=== PATIENT | female | born 1935 | race African-American/Black ===

== ENCOUNTER 2018-04-19 11:07 | Inpatient (IN) | payer MEDICARE, MEDICAID ==
[~2018-04-19] VITALS: Ht 172.7 cm; Wt 75.7 kg
[~2018-04-19 11:07] MED LIST: ALPR0.5T PO; AMLO10TA80 PO; ASPI-1159 PO; DONE10TA11 PO; IBUP-2029 PO; MEMA10TA2 PO; PRAV40TA PO
[2018-04-19 13:17] LABS: MEAN CORPUSCULAR HEMOGLOBIN 22.3 pg (28.0-32.0); MEAN CORPUSCULAR VOLUME 73.3 fL (81.0-99.0); MEAN PLATELET VOLUME 8.6 fl (7.4-10.4); PLATELET 282 x1000/uL (130-400); RED BLOOD CELL COUNT 2.65 mill/uL (4.2-5.4); RED CELL DISTRIBUTION WIDTH 17.4 % (11.6-14.6)
[2018-04-19 13:19] LABS: CHLORIDE 105 mEq/L (98-107); PROTHROMBIN TIME 9.9 sec (9.1-11.1)
[2018-04-19 13:21] LABS: HEMATOCRIT. 19.4 % (36.0-48.0); HEMOGLOBIN. 5.9 g/dL (12.0-16.0)
[2018-04-19 13:26] LABS: CLARITY URINE CLEAR (CLEAR); COLOR URINE YELLOW (YELLOW); KETONES URINE NEGATIVE (NEGATIVE); LEUKOCYTE ESTERASE URINE TRACE (NEGATIVE); NITRITE URINE NEGATIVE (NEGATIVE); OCCULT BLOOD URINE NEGATIVE (NEGATIVE); PROTEIN URINE NEGATIVE (NEGATIVE)
[2018-04-19] MEDS ORDERED: LEVOFLOXACIN 750MG PREMIX 150 ML IV ONE (14:15)
[2018-04-19 14:38] LABS: PLATELET ESTIMATE NORMAL
[2018-04-19 17:15] VITALS: BP 152/52
[2018-04-19] MEDS ORDERED: MIRT15TA6 MT (19:02)
[2018-04-19] MEDS ORDERED: MECL-127 MT (19:02)
[2018-04-19] MEDS ORDERED: ALPR0.25 MT (19:02)
[2018-04-19] MEDS ORDERED: RIVA1PAT TD (19:02)
[2018-04-19] MEDS ORDERED: LOSA1TAB40 MT (19:02)
[2018-04-19] MEDS ORDERED: CYAN-33 PO (19:02)
[2018-04-19] MEDS ORDERED: DILT30TA3 MT (19:02)
[2018-04-19 20:00] VITALS: BP 149/51
[2018-04-19] MEDS ORDERED: FUROSEMIDE 20MG TABLET PO SCH (21:00)
[2018-04-19 21:42] VITALS: BP 135/52
[2018-04-19 21:57] VITALS: BP 141/47
[2018-04-19 22:57] VITALS: BP 155/42
[2018-04-19] MEDS ORDERED: AMLODIPINE 10MG TABLET PO NR (23:21)
[2018-04-19] MEDS: DONEPEZIL HCL 10MG TABLET PO SCH (23:48)
[2018-04-20] VITALS (11 sets, daily range): BP systolic 118–155; BP diastolic 29–72
[2018-04-20 07:29] LABS: BASOPHILS % 0.5 % (0.0-2.0); EOSINOPHILS % 0.7 % (0.0-5.0); HEMATOCRIT. 22.4 % (36.0-48.0); HEMOGLOBIN. 7.1 g/dL (12.0-16.0); LYMPHOCYTES % 21.3 % (20.0-50.0); MEAN CORPUSCULAR HEMOGLOBIN 24.3 pg (28.0-32.0); MEAN CORPUSCULAR VOLUME 76.4 fL (81.0-99.0); MEAN PLATELET VOLUME 8.5 fl (7.4-10.4); MONOCYTES % 9.1 % (2.0-8.0); NEUTROPHILS % 68.4 % (40.0-76.0); PLATELET 242 x1000/uL (130-400); RED BLOOD CELL COUNT 2.93 mill/uL (4.2-5.4); RED CELL DISTRIBUTION WIDTH 19.5 % (11.6-14.6)
[2018-04-20 07:40] LABS: FERRITIN 5 ng/mL (10-291)
[2018-04-20 07:48] LABS: TOTAL IRON BINDING CAPACITY 444 ug/dL (250-450)
[2018-04-20 08:41] LABS: VITAMIN B12 SERUM >2000 pg/mL pg/mL (211-911)
[2018-04-20 08:52] LABS: FOLIC ACID (FOLATE) SERUM > 20.00 ng/mL (>5.38)
[2018-04-20] MEDS: AMLODIPINE 10MG TABLET PO SCH ×2 (09:37→12:42)
[2018-04-20] MEDS: DONEPEZIL HCL 10MG TABLET PO SCH (09:37)
[2018-04-20] MEDS: MEMANTINE HCL 5MG TABLET PO SCH ×2 (09:37→12:42)
[2018-04-20] MEDS: MULTIVITAMINS,THER W-MINERALS TABLET PO SCH (09:37)
[2018-04-20] MEDS: LEVOFLOXACIN 250MG PREMIX 50 ML IV SCH (13:11)
[2018-04-21] VITALS: BP 156/56
[2018-04-21 04:00] VITALS: BP 145/50
[2018-04-21 07:00] LABS: BASOPHILS % 0.6 % (0.0-2.0); EOSINOPHILS % 0.1 % (0.0-5.0); HEMATOCRIT. 29.6 % (36.0-48.0); HEMOGLOBIN. 9.5 g/dL (12.0-16.0); LYMPHOCYTES % 15.9 % (20.0-50.0); MEAN CORPUSCULAR HEMOGLOBIN 25.2 pg (28.0-32.0); MEAN CORPUSCULAR VOLUME 78.4 fL (81.0-99.0); MEAN PLATELET VOLUME 8.6 fl (7.4-10.4); MONOCYTES % 8.7 % (2.0-8.0); NEUTROPHILS % 74.7 % (40.0-76.0); PLATELET 277 x1000/uL (130-400); RED BLOOD CELL COUNT 3.78 mill/uL (4.2-5.4); RED CELL DISTRIBUTION WIDTH 19.4 % (11.6-14.6)
[2018-04-21 08:00] VITALS: BP 138/68
[2018-04-21] MEDS: MEMANTINE HCL 5MG TABLET PO SCH (09:01)
[2018-04-21] MEDS: AMLODIPINE 10MG TABLET PO SCH (09:02)
[2018-04-21] MEDS: DONEPEZIL HCL 10MG TABLET PO SCH (09:02)
[2018-04-21] MEDS: MULTIVITAMINS,THER W-MINERALS TABLET PO SCH (09:02)
[2018-04-21 12:00] VITALS: BP 114/57
[2018-04-21] MEDS: LEVOFLOXACIN 250MG PREMIX 50 ML IV SCH (13:22)
[2018-04-21 15:31] VITALS: BP 114/58
== END 2018-04-21 18:46 | disposition home or self-care (01) | DRG 812 ==
LOC: ER 11:07 → 8WST 14:23 → EDBEDREQ 14:26 → EDBEDREQTM 14:26 → ENRESERV 15:31 → 8WST 22:05
PROVIDERS: ADMIT Internal Medicine; ATTEND Internal Medicine
PROC: 30233N1 Transfusion of Nonautologous Red Blood Cells into Peripheral Vein, Percutaneous Approach (ICD-10-PCS; principal; 2018-04-19)
DX: D50.9 Iron deficiency anemia, unspecified (principal); E11.9 Type 2 diabetes mellitus without complications; G30.9 Alzheimer's disease, unspecified; F02.80 Dementia in other diseases classified elsewhere, unspecified severity, without behavioral disturbance, psychotic disturbance, mood disturbance, and anxiety; E78.5 Hyperlipidemia, unspecified; Z53.29 Procedure and treatment not carried out because of patient's decision for other reasons; F41.9 Anxiety disorder, unspecified; I11.9 Hypertensive heart disease without heart failure; M19.90 Unspecified osteoarthritis, unspecified site; Z88.0 Allergy status to penicillin; Z88.5 Allergy status to narcotic agent; Z79.899 Other long term (current) drug therapy; Z79.82 Long term (current) use of aspirin
CPT/HCPCS: 36415; 71045; 80048; 82607; 82728; 82746; 83540; 83550; 86850; 86900; 86920; 93005; 93306; 96365; 99291; J1956; J7050; P9016

== ENCOUNTER 2018-05-20 20:31 | Inpatient (IN) | payer MEDICARE, MEDICAID ==
[~2018-05-20] VITALS: Ht 167.6 cm; Wt 64.0 kg
[~2018-05-20 20:31] MED LIST changes: +ALPR0.25 MT; -ALPR0.5T PO; -AMLO10TA80 PO; +CYAN-33 PO; +DILT30TA3 MT; +LOSA1TAB40 MT; +MECL-127 MT; -MEMA10TA2 PO; +MIRT15TA6 MT; +RIVA1PAT TD
[2018-05-21] MEDS ORDERED: ACETAMINOPHEN 325MG TABLET PO SCH (00:15)
[2018-05-21] MEDS ORDERED: MORPHINE SULFATE 4 MG/ML CPJ (NOT FOR IM USE) IV SCH (00:15)
[2018-05-21 00:24] LABS: HEMATOCRIT. 26.9 % (36.0-48.0); HEMOGLOBIN. 8.7 g/dL (12.0-16.0); MEAN CORPUSCULAR HEMOGLOBIN 25.3 pg (28.0-32.0); MEAN CORPUSCULAR VOLUME 78.4 fL (81.0-99.0); MEAN PLATELET VOLUME 8.6 fl (7.4-10.4); PLATELET 219 x1000/uL (130-400); RED BLOOD CELL COUNT 3.44 mill/uL (4.2-5.4); RED CELL DISTRIBUTION WIDTH 22.1 % (11.6-14.6)
[2018-05-21 00:31] LABS: PROTHROMBIN TIME 10.4 sec (9.1-11.1)
[2018-05-21 00:51] LABS: PLATELET ESTIMATE NORMAL
[2018-05-21 03:00] VITALS: BP 180/48
[2018-05-21] MEDS ORDERED: MULT1TAB67 MT (03:52)
[2018-05-21] MEDS ORDERED: FOLI-43 MT (03:56)
[2018-05-21] MEDS ORDERED: ACET325T52 MT (04:00)
[2018-05-21] MEDS ORDERED: FERR-71 MT (04:02)
[2018-05-21] MEDS ORDERED: CLONIDINE 0.1MG TABLET PO PRN (05:15)
[2018-05-21] MEDS ORDERED: MORPHINE SULFATE 4 MG/ML CPJ (NOT FOR IM USE) IV PRN ×2 (05:15→16:00)
[2018-05-21] MEDS ORDERED: POTASSIUM CHLORIDE 20MEQ TABLET SR PO SCH (05:15)
[2018-05-21 06:32] VITALS: BP 163/55
[2018-05-21 08:00] VITALS: BP 153/42
[2018-05-21] MEDS: AMLODIPINE 5MG TABLET PO SCH ×2 (08:27→21:03)
[2018-05-21 12:00] VITALS: BP 158/58
[2018-05-21] MEDS ORDERED: HYDROCODONE/ACETAMINOPHEN 5/325MG TABLET PO PRN (14:30)
[2018-05-21] MEDS ORDERED: BUPIVACAINE/EPINEPH/PF 0.25%/0.0005 10ML ONE ×2 (14:37→15:02)
[2018-05-21] MEDS ORDERED: VANCOMYCIN HCL 500 MG/VIAL ONE (14:38)
[2018-05-21] MEDS ORDERED: BUPIVACAINE HCL/DEXTROSE/PF 0.75% 2ML AMP INJ ONE (14:53)
[2018-05-21] MEDS ORDERED: MORPHINE SULFATE/PF 1MG/ML 10ML AMP ONE (15:03)
[2018-05-21] MEDS ORDERED: ONDANSETRON HCL 4MG/2ML INJ IV PRN ×2 (16:00)
[2018-05-21] MEDS ORDERED: HYDROCODONE/ACETAMINOPHEN 10/325MG TABLET PO PRN (16:00)
[2018-05-21] MEDS ORDERED: MEPERIDINE HCL/PF 25MG/ML CPJ IV PRN ×2 (16:00)
[2018-05-21 16:11] LABS: CLARITY URINE CLEAR (CLEAR); COLOR URINE YELLOW (YELLOW); KETONES URINE NEGATIVE (NEGATIVE); LEUKOCYTE ESTERASE URINE 1+ (NEGATIVE); NITRITE URINE NEGATIVE (NEGATIVE); OCCULT BLOOD URINE NEGATIVE (NEGATIVE); PROTEIN URINE NEGATIVE (NEGATIVE); SPECIFIC GRAVITY URINE 1.022 (1.005-1.030); UROBILINOGEN URINE 0.2 E.U./dL (0.2-1.0)
[2018-05-21] MEDS: HYDROMORPHONE HCL/PF 2MG/ML CPJ IV PRN ×2 (16:28→16:38)
[2018-05-21] MEDS ORDERED: LABETALOL HCL 20MG/4ML CARPUJECT IV NR (16:30)
[2018-05-21] MEDS: CLINDAMYCIN 600 MG in DEXTROSE 5% WATER 50 ML IV SCH (17:00)
[2018-05-21] MEDS: DOCUSATE SODIUM 100MG CAPSULE PO SCH (17:00)
[2018-05-21] MEDS: SENNOSIDES/DOCUSATE SOD 8.6/50MG TABLET PO SCH (17:00)
[2018-05-21 20:00] VITALS: BP 139/77
[2018-05-21] MEDS: ATORVASTATIN CALCIUM 40MG TABLET PO SCH (21:03)
[2018-05-22] VITALS (11 sets, daily range): BP systolic 105–154; BP diastolic 36–89
[2018-05-22] MEDS: SODIUM CHLORIDE 0.9% 1,000 ML IV ONE ×2 (00:22→04:03)
[2018-05-22] MEDS: CLINDAMYCIN 600 MG in DEXTROSE 5% WATER 50 ML IV SCH ×4 (00:23→18:18)
[2018-05-22 06:52] LABS: BASOPHILS % 0.4 % (0.0-2.0); HEMATOCRIT. 21.9 % (36.0-48.0); LYMPHOCYTES % 9.1 % (20.0-50.0); MEAN CORPUSCULAR VOLUME 80.7 fL (81.0-99.0); MEAN PLATELET VOLUME 9.3 fl (7.4-10.4); MONOCYTES % 9.6 % (2.0-8.0); NEUTROPHILS % 80.9 % (40.0-76.0); PLATELET 169 x1000/uL (130-400); RED BLOOD CELL COUNT 2.71 mill/uL (4.2-5.4); RED CELL DISTRIBUTION WIDTH 22.5 % (11.6-14.6)
[2018-05-22 07:43] LABS: HEMOGLOBIN. 6.8 g/dL (12.0-16.0)
[2018-05-22] MEDS: AMLODIPINE 5MG TABLET PO SCH ×2 (09:11→21:36)
[2018-05-22] MEDS: DOCUSATE SODIUM 100MG CAPSULE PO SCH ×2 (09:11→18:18)
[2018-05-22] MEDS: SENNOSIDES/DOCUSATE SOD 8.6/50MG TABLET PO SCH ×2 (09:11→18:18)
[2018-05-22] MEDS ORDERED: ACETAMINOPHEN 325MG TABLET PO PRN (13:25)
[2018-05-22] MEDS ORDERED: LEVOFLOXACIN 500MG TABLET PO SCH (17:30)
[2018-05-22 19:28] LABS: HEMATOCRIT 24.1 % (36.0-48.0); HEMOGLOBIN 7.8 g/dL (12.0-16.0); PROTHROMBIN TIME 10.1 sec (9.1-11.1)
[2018-05-22 19:47] LABS: T4 FREE 1.75 ng/dL (0.76-1.46)
[2018-05-22 20:09] LABS: VITAMIN B12 SERUM 1844 pg/mL (211-911)
[2018-05-22 20:28] LABS: FOLIC ACID (FOLATE) SERUM > 20.00 ng/mL (>5.38)
[2018-05-22] MEDS ORDERED: LORAZEPAM 2MG/ML CPJ IM PRN (21:00)
[2018-05-22] MEDS: ATORVASTATIN CALCIUM 40MG TABLET PO SCH (21:36)
[2018-05-23 04:00] VITALS: BP_SYST 125; BP_SYST 142; BP_DIAS 35; BP_DIAS 43
[2018-05-23 08:00] VITALS: BP 135/65
[2018-05-23] MEDS ORDERED: DONEPEZIL HCL 10MG TABLET PO SCH (09:00)
[2018-05-23] MEDS: DOCUSATE SODIUM 100MG CAPSULE PO SCH ×2 (09:06→17:46)
[2018-05-23] MEDS: SENNOSIDES/DOCUSATE SOD 8.6/50MG TABLET PO SCH ×2 (09:07→17:46)
[2018-05-23] MEDS: AMLODIPINE 5MG TABLET PO SCH ×2 (09:07→20:32)
[2018-05-23 12:00] VITALS: BP 138/51
[2018-05-23 14:18] LABS: BASOPHILS % 0.3 % (0.0-2.0); EOSINOPHILS % 0.1 % (0.0-5.0); HEMATOCRIT. 24.3 % (36.0-48.0); HEMOGLOBIN. 7.9 g/dL (12.0-16.0); LYMPHOCYTES % 11.8 % (20.0-50.0); MEAN CORPUSCULAR HEMOGLOBIN 26.1 pg (28.0-32.0); MEAN CORPUSCULAR VOLUME 80.7 fL (81.0-99.0); MEAN PLATELET VOLUME 9.5 fl (7.4-10.4); MONOCYTES % 9.9 % (2.0-8.0); NEUTROPHILS % 77.9 % (40.0-76.0); PLATELET 156 x1000/uL (130-400); RED BLOOD CELL COUNT 3.01 mill/uL (4.2-5.4); RED CELL DISTRIBUTION WIDTH 21.1 % (11.6-14.6)
[2018-05-23 16:00] VITALS: BP 138/51
[2018-05-23] MEDS: ATORVASTATIN CALCIUM 40MG TABLET PO SCH (20:31)
[2018-05-23] MEDS ORDERED: ALPRAZOLAM MT PRN (21:00)
[2018-05-23] MEDS ORDERED: IBUPROFEN 600 MG PO PRN (21:00)
[2018-05-23] MEDS ORDERED: MIRTAZAPINE 15MG TABLET PO SCH (21:00)
[2018-05-24] MEDS ORDERED: FERROUS SULFATE 325MG TABLET PO SCH (09:00)
[2018-05-24] MEDS ORDERED: ACETAMINOPHEN MT SCH (09:00)
[2018-05-24] MEDS ORDERED: PRAVASTATIN SODIUM 40 MG PO SCH (09:00)
[2018-05-24] MEDS ORDERED: DILTIAZEM HCL 30MG TABLET PO SCH (09:00)
[2018-05-24] MEDS ORDERED: DONEPEZIL HCL 10MG TABLET PO SCH (09:00)
[2018-05-24] MEDS ORDERED: MEDICATION NOT ON FORMULARY EA (Folic Acid 1 TAB) MT SCH (09:00)
[2018-05-24] MEDS ORDERED: MULTIVITAMIN MT SCH (09:00)
[2018-05-24] MEDS ORDERED: MECLIZINE HCL MT SCH (09:00)
== END 2018-05-23 21:41 | DRG 480 ==
LOC: ER 20:31 → 6EST 05-21 00:16 → EDBEDREQ 05-21 00:19 → EDBEDREQDT 05-21 00:19 → EDBEDREQTM 05-21 00:19 → ENRESERV 05-21 01:17
PROVIDERS: ADMIT Internal Medicine; ATTEND Internal Medicine
PROC: 0QS704Z Reposition Left Upper Femur with Internal Fixation Device, Open Approach (ICD-10-PCS; principal; 2018-05-21)
PROC: 30233N1 Transfusion of Nonautologous Red Blood Cells into Peripheral Vein, Percutaneous Approach (ICD-10-PCS; 2018-05-22)
DX: S72.142A Displaced intertrochanteric fracture of left femur, initial encounter for closed fracture (principal); N17.0 Acute kidney failure with tubular necrosis; G92 Toxic encephalopathy; N39.0 Urinary tract infection, site not specified; I10 Essential (primary) hypertension; E78.00 Pure hypercholesterolemia, unspecified; E78.5 Hyperlipidemia, unspecified; D64.9 Anemia, unspecified; F03.90 Unspecified dementia, unspecified severity, without behavioral disturbance, psychotic disturbance, mood disturbance, and anxiety; E87.6 Hypokalemia; I27.20 Pulmonary hypertension, unspecified; I07.1 Rheumatic tricuspid insufficiency; R73.9 Hyperglycemia, unspecified; Z96.641 Presence of right artificial hip joint; W10.8XXA Fall (on) (from) other stairs and steps, initial encounter; Y92.009 Unspecified place in unspecified non-institutional (private) residence as the place of occurrence of the external cause; Y93.89 Activity, other specified; Y99.8 Other external cause status; Z88.0 Allergy status to penicillin; Z88.5 Allergy status to narcotic agent; Z87.891 Personal history of nicotine dependence
CPT/HCPCS: 36415; 70551; 71045; 73502; 73503; 76000; 80048; 82140; 82607; 82746; 83036; 84439; 84443; 84481; 85014; 85018; 85049; 85384; 86850; 86900; 86920; 93005; 93306; 96374; 97162; 97166; 97530; 99285; C1713; C1769; C1893; J0171; J0330; J0690; J1170; J2060; J2175; J2250; J2270; J2274; J2370; J2405; J2704; J2710; J2765; J3010; J3370; J3490; J7040; J7060; P9016

== ENCOUNTER 2018-05-23 21:37 | Inpatient (IN) | payer MEDICARE, MEDICAID ==
[~2018-05-23] VITALS: Ht 167.6 cm; Wt 69.9 kg
[2018-05-23 21:37] VITALS: BP 139/41
[~2018-05-23 21:37] MED LIST changes: +ACET325T52 MT; +FERR-71 MT; +FOLI-43 MT; +MULT1TAB67 MT
[2018-05-23 22:00] VITALS: BP 139/41
[2018-05-24] VITALS (7 sets, daily range): BP systolic 124–137; BP diastolic 28–46
[2018-05-24] MEDS ORDERED: HYDROCODONE/ACETAMINOPHEN 10/325MG TABLET PO PRN
[2018-05-24] MEDS ORDERED: LORAZEPAM 1MG TABLET PO PRN
[2018-05-24] MEDS ORDERED: ONDANSETRON HCL 4MG TABLET PO PRN
[2018-05-24] MEDS ORDERED: CLONIDINE 0.1MG TABLET PO PRN
[2018-05-24 07:34] LABS: CHLORIDE 111 mEq/L (98-107)
[2018-05-24 07:50] LABS: BASOPHILS % 0.3 % (0.0-2.0); EOSINOPHILS % 0.8 % (0.0-5.0); HEMATOCRIT. 21.7 % (36.0-48.0); HEMOGLOBIN. 7.2 g/dL (12.0-16.0); LYMPHOCYTES % 13.2 % (20.0-50.0); MEAN CORPUSCULAR HEMOGLOBIN 26.5 pg (28.0-32.0); MEAN CORPUSCULAR VOLUME 80.2 fL (81.0-99.0); MEAN PLATELET VOLUME 9.6 fl (7.4-10.4); MONOCYTES % 7.6 % (2.0-8.0); NEUTROPHILS % 78.1 % (40.0-76.0); PLATELET 139 x1000/uL (130-400); RED BLOOD CELL COUNT 2.71 mill/uL (4.2-5.4); RED CELL DISTRIBUTION WIDTH 20.8 % (11.6-14.6)
[2018-05-24] MEDS: DONEPEZIL HCL 10MG TABLET PO SCH (10:27)
[2018-05-24] MEDS: DOCUSATE SODIUM 100MG CAPSULE PO SCH ×2 (10:27→17:48)
[2018-05-24] MEDS: SENNOSIDES/DOCUSATE SOD 8.6/50MG TABLET PO SCH ×2 (10:27→17:00)
[2018-05-24] MEDS: AMLODIPINE 5MG TABLET PO SCH ×2 (10:27→23:49)
[2018-05-24] MEDS: LEVOFLOXACIN 500MG TABLET PO SCH (10:34)
[2018-05-24] MEDS: HYDROCODONE/ACETAMINOPHEN 5/325MG TABLET PO PRN ×2 (14:14→18:57)
[2018-05-24] MEDS: ATORVASTATIN CALCIUM 40MG TABLET PO SCH (23:48)
[2018-05-25] MEDS: HYDROCODONE/ACETAMINOPHEN 5/325MG TABLET PO PRN ×3 (04:50→17:46)
[2018-05-25] MEDS: IRON SUCROSE COMPLEX 100 MG in SODIUM CHLORIDE 0.9% 100 ML IV SCH (06:06)
[2018-05-25 06:47] LABS: BASOPHILS % 0.5 % (0.0-2.0); EOSINOPHILS % 3.2 % (0.0-5.0); HEMATOCRIT. 26.2 % (36.0-48.0); HEMOGLOBIN. 8.7 g/dL (12.0-16.0); LYMPHOCYTES % 16.5 % (20.0-50.0); MEAN CORPUSCULAR HEMOGLOBIN 26.8 pg (28.0-32.0); MEAN CORPUSCULAR VOLUME 80.5 fL (81.0-99.0); MEAN PLATELET VOLUME 9.4 fl (7.4-10.4); MONOCYTES % 9.4 % (2.0-8.0); NEUTROPHILS % 70.4 % (40.0-76.0); PLATELET 169 x1000/uL (130-400); RED BLOOD CELL COUNT 3.26 mill/uL (4.2-5.4); RED CELL DISTRIBUTION WIDTH 18.9 % (11.6-14.6)
[2018-05-25 06:55] LABS: CHLORIDE 109 mEq/L (98-107)
[2018-05-25 07:09] LABS: FERRITIN 96 ng/mL (10-291)
[2018-05-25 07:11] LABS: PHOSPHORUS 2.6 mg/dL (2.5-4.9)
[2018-05-25 07:12] LABS: TOTAL IRON BINDING CAPACITY 248 ug/dL (250-450)
[2018-05-25 07:13] LABS: HAPTOGLOBIN 281 mg/dL (30-200)
[2018-05-25 07:22] LABS: VITAMIN B12 SERUM 1414 pg/mL (211-911)
[2018-05-25 08:00] VITALS: BP 119/48
[2018-05-25] MEDS: SENNOSIDES/DOCUSATE SOD 8.6/50MG TABLET PO SCH (09:00)
[2018-05-25] MEDS: DONEPEZIL HCL 10MG TABLET PO SCH (09:50)
[2018-05-25] MEDS: AMLODIPINE 5MG TABLET PO SCH ×2 (09:50→21:44)
[2018-05-25] MEDS: DOCUSATE SODIUM 100MG CAPSULE PO SCH ×2 (09:50→17:45)
[2018-05-25] MEDS ORDERED: LACTULOSE 20G/30ML UDC PO STA (13:04)
[2018-05-25] MEDS ORDERED: DOCUSATE SODIUM 100MG CAPSULE PO SCH (17:00)
[2018-05-25 20:00] VITALS: BP 146/53
[2018-05-25] MEDS: POLYETHYLENE GLYCOL 3350 (17GM) 1 DOSE PACK PO SCH (21:00)
[2018-05-25] MEDS: ATORVASTATIN CALCIUM 40MG TABLET PO SCH (21:44)
[2018-05-26] MEDS: IRON SUCROSE COMPLEX 100 MG in SODIUM CHLORIDE 0.9% 100 ML IV SCH (05:04)
[2018-05-26 06:51] LABS: HEMOGLOBIN 8.3 g/dL (12.0-16.0); MEAN CORPUSCULAR HEMOGLOBIN 26.6 pg (28.0-32.0); MEAN CORPUSCULAR VOLUME 80.1 fL (81.0-99.0); PLATELET 176 x1000/uL (130-400); RED BLOOD CELL COUNT 3.12 mill/uL (4.2-5.4); RED CELL DISTRIBUTION WIDTH 19.3 % (11.6-14.6)
[2018-05-26 08:49] VITALS: BP 116/47
[2018-05-26 09:06] LABS: IMMUNOGLOBULIN A 211 mg/dL (64-422); IMMUNOGLOBULIN G 887 mg/dL (700-1600); IMMUNOGLOBULIN M 22 mg/dL (26-217)
[2018-05-26] MEDS: DONEPEZIL HCL 10MG TABLET PO SCH (09:55)
[2018-05-26] MEDS: DOCUSATE SODIUM 100MG CAPSULE PO SCH ×2 (09:55→18:30)
[2018-05-26] MEDS: AMLODIPINE 5MG TABLET PO SCH ×2 (09:55→20:34)
[2018-05-26] MEDS: LEVOFLOXACIN 500MG TABLET PO SCH (11:48)
[2018-05-26 20:00] VITALS: BP 131/44
[2018-05-26] MEDS: ATORVASTATIN CALCIUM 40MG TABLET PO SCH (20:34)
[2018-05-26] MEDS: POLYETHYLENE GLYCOL 3350 (17GM) 1 DOSE PACK PO SCH (20:35)
[2018-05-27] MEDS: ACETAMINOPHEN 325MG TABLET PO PRN (02:39)
[2018-05-27] MEDS: IRON SUCROSE COMPLEX 100 MG in SODIUM CHLORIDE 0.9% 100 ML IV SCH (05:35)
[2018-05-27 07:22] LABS: BASOPHILS % 0.6 % (0.0-2.0); EOSINOPHILS % 2.6 % (0.0-5.0); HEMATOCRIT. 25.7 % (36.0-48.0); HEMOGLOBIN. 8.5 g/dL (12.0-16.0); LYMPHOCYTES % 20.6 % (20.0-50.0); MEAN CORPUSCULAR HEMOGLOBIN 26.5 pg (28.0-32.0); MEAN CORPUSCULAR VOLUME 80.4 fL (81.0-99.0); MEAN PLATELET VOLUME 8.6 fl (7.4-10.4); MONOCYTES % 12.3 % (2.0-8.0); NEUTROPHILS % 63.9 % (40.0-76.0); PLATELET 198 x1000/uL (130-400); RED CELL DISTRIBUTION WIDTH 19.2 % (11.6-14.6)
[2018-05-27 07:30] VITALS: BP 133/45
[2018-05-27] MEDS: DOCUSATE SODIUM 100MG CAPSULE PO SCH ×2 (09:02→17:19)
[2018-05-27] MEDS: AMLODIPINE 5MG TABLET PO SCH ×2 (09:02→21:07)
[2018-05-27] MEDS: DONEPEZIL HCL 10MG TABLET PO SCH (09:02)
[2018-05-27] MEDS: HYDROCODONE/ACETAMINOPHEN 5/325MG TABLET PO PRN ×3 (11:42→21:07)
[2018-05-27 18:48] LABS: CLARITY URINE CLOUDY (CLEAR); COLOR URINE YELLOW (YELLOW); KETONES URINE NEGATIVE (NEGATIVE); LEUKOCYTE ESTERASE URINE 3+ (NEGATIVE); NITRITE URINE NEGATIVE (NEGATIVE); OCCULT BLOOD URINE TRACE (NEGATIVE); PH URINE 5.5 (4.5-8.0); PROTEIN URINE TRACE (NEGATIVE); SPECIFIC GRAVITY URINE 1.019 (1.005-1.030)
[2018-05-27 20:00] VITALS: BP 133/75
[2018-05-27] MEDS: POLYETHYLENE GLYCOL 3350 (17GM) 1 DOSE PACK PO SCH (20:54)
[2018-05-27] MEDS: ATORVASTATIN CALCIUM 40MG TABLET PO SCH (21:07)
[2018-05-28 07:51] LABS: BASOPHILS % 0.4 % (0.0-2.0); EOSINOPHILS % 3.5 % (0.0-5.0); HEMATOCRIT. 26.6 % (36.0-48.0); HEMOGLOBIN. 8.7 g/dL (12.0-16.0); LYMPHOCYTES % 14.5 % (20.0-50.0); MEAN CORPUSCULAR HEMOGLOBIN 26.6 pg (28.0-32.0); MEAN CORPUSCULAR VOLUME 81.4 fL (81.0-99.0); MEAN PLATELET VOLUME 8.8 fl (7.4-10.4); MONOCYTES % 10.9 % (2.0-8.0); NEUTROPHILS % 70.7 % (40.0-76.0); PLATELET 213 x1000/uL (130-400); RED BLOOD CELL COUNT 3.27 mill/uL (4.2-5.4); RED CELL DISTRIBUTION WIDTH 19.5 % (11.6-14.6)
[2018-05-28 08:00] VITALS: BP 91/42
[2018-05-28] MEDS: AMLODIPINE 5MG TABLET PO SCH ×2 (09:00→21:08)
[2018-05-28] MEDS: DONEPEZIL HCL 10MG TABLET PO SCH (09:12)
[2018-05-28] MEDS: HYDROCODONE/ACETAMINOPHEN 5/325MG TABLET PO PRN (09:12)
[2018-05-28] MEDS: DOCUSATE SODIUM 100MG CAPSULE PO SCH ×2 (09:12→17:00)
[2018-05-28] MEDS: LEVOFLOXACIN 500MG TABLET PO SCH (11:34)
[2018-05-28 20:00] VITALS: BP 148/42
[2018-05-28] MEDS: POLYETHYLENE GLYCOL 3350 (17GM) 1 DOSE PACK PO SCH (21:00)
[2018-05-28] MEDS: ATORVASTATIN CALCIUM 40MG TABLET PO SCH (21:09)
[2018-05-29] MEDS: ACETAMINOPHEN 325MG TABLET PO PRN (06:58)
[2018-05-29 08:00] VITALS: BP 156/44
[2018-05-29] MEDS: DOCUSATE SODIUM 100MG CAPSULE PO SCH ×2 (09:39→17:28)
[2018-05-29] MEDS: DONEPEZIL HCL 10MG TABLET PO SCH (09:40)
[2018-05-29] MEDS: AMLODIPINE 5MG TABLET PO SCH ×2 (09:40→21:03)
[2018-05-29] MEDS: HYDROCODONE/ACETAMINOPHEN 5/325MG TABLET PO PRN (15:27)
[2018-05-29] MEDS ORDERED: LORAZEPAM 1MG TABLET PO PRN (19:45)
[2018-05-29 20:00] VITALS: BP 143/41
[2018-05-29] MEDS: ATORVASTATIN CALCIUM 40MG TABLET PO SCH (21:02)
[2018-05-29] MEDS: POLYETHYLENE GLYCOL 3350 (17GM) 1 DOSE PACK PO SCH (21:03)
[2018-05-30 06:30] LABS: BASOPHILS % 0.6 % (0.0-2.0); EOSINOPHILS % 1.7 % (0.0-5.0); HEMATOCRIT. 28.2 % (36.0-48.0); LYMPHOCYTES % 14.1 % (20.0-50.0); MEAN CORPUSCULAR HEMOGLOBIN 26.3 pg (28.0-32.0); MEAN CORPUSCULAR VOLUME 82.4 fL (81.0-99.0); MEAN PLATELET VOLUME 8.7 fl (7.4-10.4); MONOCYTES % 11.1 % (2.0-8.0); NEUTROPHILS % 72.5 % (40.0-76.0); PLATELET 269 x1000/uL (130-400); RED BLOOD CELL COUNT 3.42 mill/uL (4.2-5.4); RED CELL DISTRIBUTION WIDTH 19.7 % (11.6-14.6)
[2018-05-30] MEDS: HYDROCODONE/ACETAMINOPHEN 5/325MG TABLET PO PRN (06:36)
[2018-05-30 07:24] LABS: CHLORIDE 107 mEq/L (98-107)
[2018-05-30 07:29] LABS: CLARITY URINE CLOUDY (CLEAR); COLOR URINE YELLOW (YELLOW); KETONES URINE NEGATIVE (NEGATIVE); LEUKOCYTE ESTERASE URINE 3+ (NEGATIVE); NITRITE URINE NEGATIVE (NEGATIVE); OCCULT BLOOD URINE NEGATIVE (NEGATIVE); PROTEIN URINE NEGATIVE (NEGATIVE); SPECIFIC GRAVITY URINE 1.013 (1.005-1.030)
[2018-05-30 07:32] LABS: PHOSPHORUS 3.3 mg/dL (2.5-4.9)
[2018-05-30 08:00] VITALS: BP 149/41
[2018-05-30] MEDS: DONEPEZIL HCL 10MG TABLET PO SCH (08:50)
[2018-05-30] MEDS: DOCUSATE SODIUM 100MG CAPSULE PO SCH ×2 (08:50→17:00)
[2018-05-30] MEDS: AMLODIPINE 5MG TABLET PO SCH ×2 (08:51→20:23)
[2018-05-30 15:09] LABS: 25-HYDROXY VITAMIN D3 18 ng/mL (.)
[2018-05-30 20:00] VITALS: BP 135/33
[2018-05-30] MEDS: ERGOCALCIFEROL 50000UNITS CAPSULE PO SCH (20:22)
[2018-05-30] MEDS: ATORVASTATIN CALCIUM 40MG TABLET PO SCH (20:23)
[2018-05-30] MEDS: POLYETHYLENE GLYCOL 3350 (17GM) 1 DOSE PACK PO SCH (20:23)
[2018-05-31] MEDS: HYDROCODONE/ACETAMINOPHEN 5/325MG TABLET PO PRN (06:32)
[2018-05-31 08:00] VITALS: BP 124/40
[2018-05-31] MEDS: AMLODIPINE 5MG TABLET PO SCH ×2 (08:58→21:11)
[2018-05-31] MEDS: DOCUSATE SODIUM 100MG CAPSULE PO SCH ×2 (08:58→16:57)
[2018-05-31] MEDS: DONEPEZIL HCL 10MG TABLET PO SCH (08:58)
[2018-05-31] MEDS ORDERED: LORAZEPAM 1MG TABLET PO PRN (19:45)
[2018-05-31 19:51] VITALS: BP 123/35
[2018-05-31] MEDS: ATORVASTATIN CALCIUM 40MG TABLET PO SCH (21:11)
[2018-05-31] MEDS: POLYETHYLENE GLYCOL 3350 (17GM) 1 DOSE PACK PO SCH (21:11)
[2018-06-01] VITALS: BP 134/43
[2018-06-01] MEDS: ACETAMINOPHEN 325MG TABLET PO PRN (01:46)
[2018-06-01 04:00] VITALS: BP 128/33
[2018-06-01] MEDS: HYDROCODONE/ACETAMINOPHEN 5/325MG TABLET PO PRN ×3 (06:32→18:05)
[2018-06-01 07:06] LABS: BASOPHILS % 0.3 % (0.0-2.0); EOSINOPHILS % 1.6 % (0.0-5.0); HEMATOCRIT. 27.3 % (36.0-48.0); HEMOGLOBIN. 8.8 g/dL (12.0-16.0); LYMPHOCYTES % 18.5 % (20.0-50.0); MEAN CORPUSCULAR HEMOGLOBIN 26.5 pg (28.0-32.0); MEAN CORPUSCULAR VOLUME 82.3 fL (81.0-99.0); MEAN PLATELET VOLUME 8.4 fl (7.4-10.4); MONOCYTES % 9.2 % (2.0-8.0); NEUTROPHILS % 70.4 % (40.0-76.0); PLATELET 306 x1000/uL (130-400); RED BLOOD CELL COUNT 3.32 mill/uL (4.2-5.4); RED CELL DISTRIBUTION WIDTH 19.7 % (11.6-14.6)
[2018-06-01 07:20] LABS: CHLORIDE 106 mEq/L (98-107)
[2018-06-01] MEDS: AMLODIPINE 5MG TABLET PO SCH ×2 (09:00→21:46)
[2018-06-01] MEDS: DOCUSATE SODIUM 100MG CAPSULE PO SCH ×2 (09:42→18:03)
[2018-06-01] MEDS: DONEPEZIL HCL 10MG TABLET PO SCH (09:42)
[2018-06-01 20:00] VITALS: BP 137/40
[2018-06-01] MEDS: POLYETHYLENE GLYCOL 3350 (17GM) 1 DOSE PACK PO SCH (21:00)
[2018-06-01] MEDS: ATORVASTATIN CALCIUM 40MG TABLET PO SCH (21:45)
[2018-06-02 08:00] VITALS: BP_SYST 132; BP_SYST 147; BP_DIAS 43; BP_DIAS 48
[2018-06-02] MEDS: AMLODIPINE 5MG TABLET PO SCH ×2 (08:46→20:58)
[2018-06-02] MEDS: DOCUSATE SODIUM 100MG CAPSULE PO SCH ×2 (08:46→17:12)
[2018-06-02] MEDS: DONEPEZIL HCL 10MG TABLET PO SCH (08:46)
[2018-06-02 20:00] VITALS: BP 165/38
[2018-06-02] MEDS: ATORVASTATIN CALCIUM 40MG TABLET PO SCH (20:52)
[2018-06-02] MEDS: POLYETHYLENE GLYCOL 3350 (17GM) 1 DOSE PACK PO SCH (20:52)
[2018-06-02] MEDS: FLUCONAZOLE 100MG TABLET PO SCH (20:52)
[2018-06-03] MEDS: HYDROCODONE/ACETAMINOPHEN 5/325MG TABLET PO PRN ×4 (03:18→23:35)
[2018-06-03] MEDS: DONEPEZIL HCL 10MG TABLET PO SCH (08:38)
[2018-06-03] MEDS: AMLODIPINE 5MG TABLET PO SCH ×2 (08:38→21:55)
[2018-06-03] MEDS: DOCUSATE SODIUM 100MG CAPSULE PO SCH ×2 (08:38→17:13)
[2018-06-03 20:00] VITALS: BP 147/68
[2018-06-03] MEDS: ATORVASTATIN CALCIUM 40MG TABLET PO SCH (21:54)
[2018-06-03] MEDS: FLUCONAZOLE 100MG TABLET PO SCH (21:54)
[2018-06-03] MEDS: POLYETHYLENE GLYCOL 3350 (17GM) 1 DOSE PACK PO SCH (21:55)
[2018-06-04 06:20] LABS: CHLORIDE 105 mEq/L (98-107)
[2018-06-04 06:30] LABS: PHOSPHORUS 3.3 mg/dL (2.5-4.9)
[2018-06-04 06:42] LABS: BASOPHILS % 0.5 % (0.0-2.0); EOSINOPHILS % 1.8 % (0.0-5.0); HEMATOCRIT. 30.1 % (36.0-48.0); HEMOGLOBIN. 9.8 g/dL (12.0-16.0); LYMPHOCYTES % 17.2 % (20.0-50.0); MEAN CORPUSCULAR HEMOGLOBIN 26.6 pg (28.0-32.0); MEAN CORPUSCULAR VOLUME 81.7 fL (81.0-99.0); MEAN PLATELET VOLUME 8.5 fl (7.4-10.4); MONOCYTES % 8.3 % (2.0-8.0); NEUTROPHILS % 72.2 % (40.0-76.0); PLATELET 373 x1000/uL (130-400); RED BLOOD CELL COUNT 3.69 mill/uL (4.2-5.4); RED CELL DISTRIBUTION WIDTH 19.5 % (11.6-14.6)
[2018-06-04] MEDS: DOCUSATE SODIUM 100MG CAPSULE PO SCH ×2 (08:34→16:57)
[2018-06-04] MEDS: AMLODIPINE 5MG TABLET PO SCH ×2 (08:34→21:40)
[2018-06-04] MEDS: DONEPEZIL HCL 10MG TABLET PO SCH (08:34)
[2018-06-04] MEDS ORDERED: BISACODYL 5MG TABLET PO PRN (13:15)
[2018-06-04] MEDS: ACETAMINOPHEN 325MG TABLET PO PRN ×2 (14:10→21:40)
[2018-06-04] MEDS: HYDROCODONE/ACETAMINOPHEN 5/325MG TABLET PO PRN (15:33)
[2018-06-04 20:00] VITALS: BP 132/64
[2018-06-04] MEDS: FLUCONAZOLE 100MG TABLET PO SCH (21:40)
[2018-06-04] MEDS: ATORVASTATIN CALCIUM 40MG TABLET PO SCH (21:40)
[2018-06-04] MEDS: POLYETHYLENE GLYCOL 3350 (17GM) 1 DOSE PACK PO SCH (21:41)
[2018-06-05 07:30] VITALS: BP 139/49
[2018-06-05] MEDS: DONEPEZIL HCL 10MG TABLET PO SCH (08:25)
[2018-06-05] MEDS: AMLODIPINE 5MG TABLET PO SCH ×2 (08:25→21:00)
[2018-06-05] MEDS: DOCUSATE SODIUM 100MG CAPSULE PO SCH ×2 (08:25→17:14)
[2018-06-05] MEDS: ACETAMINOPHEN 325MG TABLET PO PRN ×2 (10:42→18:25)
[2018-06-05 20:00] VITALS: BP 127/41
[2018-06-05] MEDS: FLUCONAZOLE 100MG TABLET PO SCH (22:24)
[2018-06-05] MEDS: ATORVASTATIN CALCIUM 40MG TABLET PO SCH (22:24)
[2018-06-05] MEDS: POLYETHYLENE GLYCOL 3350 (17GM) 1 DOSE PACK PO SCH (22:25)
[2018-06-06 01:17] VITALS: BP 140/50
[2018-06-06] MEDS: HYDROCODONE/ACETAMINOPHEN 5/325MG TABLET PO PRN (01:24)
[2018-06-06 08:00] VITALS: BP 127/25
[2018-06-06] MEDS: AMLODIPINE 5MG TABLET PO SCH ×2 (09:00→21:28)
[2018-06-06] MEDS: DOCUSATE SODIUM 100MG CAPSULE PO SCH ×2 (09:05→17:13)
[2018-06-06] MEDS: ERGOCALCIFEROL 50000UNITS CAPSULE PO SCH (09:05)
[2018-06-06] MEDS: DONEPEZIL HCL 10MG TABLET PO SCH (09:05)
[2018-06-06] MEDS: ACETAMINOPHEN 325MG TABLET PO PRN (11:07)
[2018-06-06 20:00] VITALS: BP 115/89
[2018-06-06] MEDS: POLYETHYLENE GLYCOL 3350 (17GM) 1 DOSE PACK PO SCH (21:00)
[2018-06-06] MEDS: ATORVASTATIN CALCIUM 40MG TABLET PO SCH (21:22)
[2018-06-06] MEDS: FLUCONAZOLE 100MG TABLET PO SCH (21:22)
[2018-06-07 08:00] VITALS: BP 137/42
[2018-06-07] MEDS: DONEPEZIL HCL 10MG TABLET PO SCH (08:49)
[2018-06-07] MEDS: ACETAMINOPHEN 325MG TABLET PO PRN ×2 (08:49→14:18)
[2018-06-07] MEDS: DOCUSATE SODIUM 100MG CAPSULE PO SCH ×2 (08:50→17:41)
[2018-06-07] MEDS: AMLODIPINE 5MG TABLET PO SCH ×2 (08:50→21:54)
[2018-06-07 20:00] VITALS: BP 119/35
[2018-06-07] MEDS: ATORVASTATIN CALCIUM 40MG TABLET PO SCH (21:53)
[2018-06-07] MEDS: POLYETHYLENE GLYCOL 3350 (17GM) 1 DOSE PACK PO SCH (21:54)
[2018-06-08] MEDS: ACETAMINOPHEN 325MG TABLET PO PRN (00:15)
[2018-06-08 08:24] VITALS: BP 136/44
[2018-06-08] MEDS: AMLODIPINE 5MG TABLET PO SCH (09:38)
[2018-06-08] MEDS: DONEPEZIL HCL 10MG TABLET PO SCH (09:38)
[2018-06-08] MEDS: DOCUSATE SODIUM 100MG CAPSULE PO SCH (09:38)
[2018-06-08 10:45] VITALS: BP 114/40
== END 2018-06-08 13:50 | disposition home health service (06) | DRG 91 ==
PROVIDERS: ADMIT Physical Medicine & Rehabilitation Spinal Cord Injury Medicine; ATTEND Internal Medicine
DX: G92 Toxic encephalopathy (principal); S72.142A Displaced intertrochanteric fracture of left femur, initial encounter for closed fracture; E43 Unspecified severe protein-calorie malnutrition; S72.002A Fracture of unspecified part of neck of left femur, initial encounter for closed fracture; N17.9 Acute kidney failure, unspecified; N39.0 Urinary tract infection, site not specified; F03.91 Unspecified dementia, unspecified severity, with behavioral disturbance; W10.9XXA Fall (on) (from) unspecified stairs and steps, initial encounter; R53.81 Other malaise; E78.5 Hyperlipidemia, unspecified; N18.9 Chronic kidney disease, unspecified; I12.9 Hypertensive chronic kidney disease with stage 1 through stage 4 chronic kidney disease, or unspecified chronic kidney disease; E87.8 Other disorders of electrolyte and fluid balance, not elsewhere classified; F17.200 Nicotine dependence, unspecified, uncomplicated; D50.9 Iron deficiency anemia, unspecified; J44.9 Chronic obstructive pulmonary disease, unspecified; Z96.641 Presence of right artificial hip joint; E78.00 Pure hypercholesterolemia, unspecified; I25.10 Atherosclerotic heart disease of native coronary artery without angina pectoris; I27.20 Pulmonary hypertension, unspecified; E55.9 Vitamin D deficiency, unspecified; W18.39XA Other fall on same level, initial encounter; Y93.89 Activity, other specified; Y92.89 Other specified places as the place of occurrence of the external cause; Y99.8 Other external cause status; Z68.24 Body mass index [BMI] 24.0-24.9, adult
CPT/HCPCS: 36415; 80048; 82270; 82306; 82607; 82728; 82784; 82962; 83010; 83540; 83550; 83615; 83735; 84100; 84134; 84443; 85027; 86334; 86850; 86880; 86900; 86920; 87077; 87106; 92523; 93970; 97110; 97116; 97163; 97166; 97530; 97535; A6261; C1893; G0515; J7040; J7050; P9016